=== PATIENT | male | born 1935 | race Caucasian/White ===

== ENCOUNTER 2017-03-04 18:44 | Emergency (ER) | payer MEDICARE, BC ==
[~2017-03-04] VITALS: Ht 177.8 cm; Wt 72.6 kg
--- NOTE | ~2017-03-04 | CT71 ---
[facility] A Service of [facility] RADIOLOGY TEXT RESULTS PATIENT: BARRY SOARES LOCATION: [facility] : 33 UNIT #: [id number] AGE: [address]: Dewayne Mejia MD SEX: M ORDER DR: [id number] [facility] [address] [facility] [place], [place] [address] [id number] E MR#: [id number] Acc #: [id number] NAME: BARRY SOARES : 1935 SEX: M STUDY DATE/TIME: 03/04/2017 20:43 UNIT: [facility] ROOM: STUDY DESCRIPTION: CT Head Wo Contrast Attending Physician: Dewayne Mejia M.D. Referring Physician: Emy Choi M.D. Ordering Physician: Dewayne Mejia M.D. Primary Care Physician: Emy Choi M.D. MEDICAL IMAGING REPORT This report is preliminary unless electronic signature is present EXAM CT head without contrast dated 03/04/2017. COMPARISON None HISTORY Patient fell and hit head 3 weeks ago. Weakness and shaky today. FINDINGS CT of the head was obtained without contrast in the axial plane. This CT exam was performed with one or more of the following radiation dose reduction techniques: Automatic exposure control, adjustment of mA and/or kV according to patient size, and iterative reconstruction. Axial noncontrast images were obtained from the skull base to the vertex. Ventricular size and configuration are normal. There is no evidence of acute infarct or hemorrhage. There are no extraaxial fluid collections. No mass lesion or mass effect is seen. There are no skull fractures. IMPRESSION Normal noncontrast head CT. Dictated by... Peg Redmond M.D. THIS IS AN ELECTRONICALLY VERIFIED REPORT Peg Redmond M.D. at 03/05/2017 6:26 PM CPR/psc [facility] A Service [facility] RADIOLOGY TEXT RESULTS PATIENT: BARRY SOARES LOCATION: [facility] : 34 UNIT #: [id number] AGE: [address]: Dewayne Mejia MD SEX: M ORDER DR: TD: 03/05/2017 02:57 JOB #: [id number] MEDICAL IMAGING REPORT Page 1 of 1 COPY
--- NOTE | ~2017-03-04 | EKG ---
PATIENT: BARRY SOARES UNIT #: [id number] Ventricular Rate: 66 BPM Atrial Rate: 66 BPM P-R Interval: 202 ms QRS Duration: 66 ms Q-T Interval: 380 ms QTC Calculation(Bezet): 398 ms P [place]: 73 degrees Calculated R [place]: -97 degrees Calculated T [place]: 157 degrees Diagnosis Line: Sinus rhythm with Premature atrial complexes in a Diagnosis Line: pattern of bigeminy Diagnosis Line: Possible Right ventricular hypertrophy Diagnosis Line: Left anterior fascicular block Diagnosis Line: Abnormal ECG Diagnosis Line: No previous ECGs available Diagnosis Line: Confirmed by OBI EISENBERG MD ([id number]) on 03/06/2017 Diagnosis Line: 4:54:31 PM INTERPRETING MD: ELGIN WILLOUGHBY
--- NOTE | ~2017-03-04 | CR72 ---
[facility] A Service of [facility] RADIOLOGY TEXT RESULTS PATIENT: BARRY SOARES LOCATION: [facility] : 34 UNIT #: [id number] AGE: [address]: Dewayne Mejia MD SEX: M ORDER DR: [id number] [facility] [address] [place], [place] [address] [id number] E MR#: [id number] Acc #: [id number] NAME: BARRY SOARES : 1935 SEX: M STUDY DATE/TIME: 03/04/2017 20:53 UNIT: [facility] ROOM: STUDY DESCRIPTION: CR Chest Single View Portable Attending Physician: Dewayne Mejia M.D. Referring Physician: Emy Choi M.D. Ordering Physician: Dewayne Mejia M.D. Primary Care Physician: Emy Choi M.D. MEDICAL IMAGING REPORT This report is preliminary unless electronic signature is present EXAM Single view chest, 03/04/2017 COMPARISON None. HISTORY Shortness of air with activity, weakness and dizziness today. FINDINGS Single view of the chest was obtained. No acute cardiopulmonary disease. 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 There is borderline sized heart. Dictated by... Peg Redmond M.D. THIS IS AN ELECTRONICALLY VERIFIED REPORT Peg Redmond M.D. at 03/05/2017 6:26 PM CPR/ljd TD: 03/05/2017 02:58 JOB #: [id number] MEDICAL IMAGING REPORT Page 1 of 1 COPY
[~2017-03-04 18:44] MED LIST: BLOOD PRESSURE MED
[2017-03-04 20:43] LABS: BASOPHIL# 0.1 X10e3 (0-0.3); BASOPHIL% 0.8 % (0-2.5); EOSINOPHIL# 0.1 X10e3 (0-0.7); HEMATOCRIT 37.8 % (38.0-50.0); HEMOGLOBIN 12.6 gm/dL (13.0-16.0); LYMPHOCYTE# 1.3 X10e3 (1.0-3.5); LYMPHOCYTE% 13.6 % (17.0-45.0); MEAN CELL VOLUME 85.3 FL (83-96); MEAN CORPUSCULAR HEMOGLOBIN 28.4 PG (28-34); MEAN CORPUSCULAR HGB CONC 33.3 g/dL (30-36); MEAN PLATELET VOLUME 8.7 FL (6.5-11.5); MONOCYTE# 0.7 X10e3 (0-1.0); MONOCYTE% 7.6 % (3.0-12.0); NEUTROPHIL# 7.1 X10e3 (1.5-7.1); RED BLOOD COUNT 4.44 X10e (3.90-5.60); RED CELL DISTRIBUTION WIDTH 15.2 % (11.0-15.5); WHITE BLOOD COUNT 9.3 X10e3 (4.0-10.5)
[2017-03-04 20:44] LABS: POC - CKMB 1.3 ng/mL (0.0-7.9); POC - TROPONIN <0.05 ng/mL (<=0.05)
[2017-03-04] MEDS ORDERED: DOXAZOSIN MESYLA4 MG PO (20:44)
[2017-03-04 20:45] LABS: DIFF IND NO; PLATELET COUNT 1047 X10e3 (140-420)
[2017-03-04] MEDS ORDERED: IBUPROFEN PO (20:45)
[2017-03-04] MEDS ORDERED: LOPRESSOR PO (20:45)
[2017-03-04 20:57] LABS: INR 1.1; PARTIAL THROMBOPLASTIN TIME 28.9 SECONDS (23.5-31.3); PROTHROMBIN TIME (PATIENT) 11.7 SECONDS (10.0-11.7)
[2017-03-04 21:07] LABS: ALBUMIN SERUM 3.7 g/dL (3.5-5.0); ALKALINE PHOSPHATASE 49 U/L (32-92); ALT (SGPT) 11 U/L (10-40); AST (SGOT) 22 U/L (10-42); BILIRUBIN,TOTAL 0.4 mg/dL (0.2-2.0); BLOOD UREA NITROGEN 23 mg/dL (9-23); BUN/CREATININE RATIO 13.52; CALCIUM SERUM 8.7 mg/dL (8.4-10.2); CARBON DIOXIDE 27 mmol/L (22-31); CHLORIDE 102 mmol/L (100-111); CREATININE SERUM 1.7 mg/dL (0.6-1.4); GLOM FILT RATE Estimated 36.8 mL/min (>60); GLUCOSE FASTING 106 mg/dL (70-110); POTASSIUM 4.3 mmol/L (3.5-5.1); PROTEIN TOTAL SERUM 6.3 g/dL (6.0-8.3); SODIUM 139 mmol/L (135-145)
[2017-03-04 21:09] LABS: BILIRUBIN, DIRECT <0.1 mg/dL (0.0-0.2); BILIRUBIN,INDIRECT 0.3 mg/dL (0.0-0.9)
== END 2017-03-04 21:47 | disposition home or self-care (01) ==
LOC: CED 18:44
PROVIDERS: Emergency Medicine
DX: N17.9 Acute kidney failure, unspecified (principal); D69.6 Thrombocytopenia, unspecified; I10 Essential (primary) hypertension
CPT/HCPCS: 36415; 70450; 71010; 80048; 80076; 82553; 84484; 85025; 85610; 85730; 93005; 96360; 99285